=== PATIENT | male | born 1960 | race Caucasian/White ===

== ENCOUNTER 2019-01-20 15:52 | Emergency (ER) | payer BC, SELFPAY ==
[2019-01-20 15:55] VITALS: BP 161/99; PULSE 75; RESP 16; TEMP 36.5; O2SAT 99
--- NOTE | 2019-01-20 16:10 | W.ED.GENAD ---
Discharge Plan Disposition Patient Disposition: HOME Condition: Stable Discharge Details Chief Complaint: EarProblem Clinical Impression: Acute infection of left pinna Primary Care Provider: Joe Allred ED Provider: Jaime Auguste Home Meds and New Rx's Prescriptions: New ciprofloxacin HCl 750 mg tablet 750 mg PO BID Qty: 14 RF: 0 clindamycin HCl 150 mg capsule 450 mg PO Q6H 7 Days Qty: 84 RF: 0 No Action sildenafil [Viagra] 100 MG tablet 100 mg PO DAILY Qty: 3 RF: 12 Discharge Instructions Instructions: Cellulitis (ED) Additional Instructions: if you are not better within a week see your primary care provider return to the emegency department for severe worsening pain or high fevers Medical Decision Making 58 yo male comes in with complaint of left ear discomfort since yesterday. He has a mole that he has had chronically in the pinna of the left ear and has seen derm for it per pt. He also notes that a fly went into his ear canal about a week ago and he scratched his ear to get it out. Denies fevers or chills or swimming. HE has redness of the left pinna and no significant tenderness or discharge, normal external mastoid, temrporal bones and facial/orbital bones and normal tm. Does have mild swelling of very outer die cast supervisor canal without drainage. He does also ntoe that he tends to scratch and pick at his mole a lot. I suspect cellulitis vs auriculitis, no drainage necessary at this time. ADvised f/u with pcp if not better in a week and return precautions given Differential Diagnosis perichondritis, cellulitis, otitis externa HPI General Mode of arrival: ambulatory. Date/Time Provider Initiated Documentation: 01/20/19 16:05. Limitations to Documentation: no limitations. Information obtained by: patient. History of Present Illness 58 year old M presents to the emergency department with the chief complaint of left ear pain, described as moderate, Quality is described as burning and aching, and is localized to the head (left ear). Patient reports no radiation. Patient started experiencing this day(s) (1) and it has been constant. No relieving factors improve symptom(s), No exacerbating factors reported . Patient notes no other symptoms.. Patient did receive the following treatments prior to arrival, none Related Data Home Medications Medication Instructions Recorded Confirmed sildenafil [Viagra] 100 mg PO DAILY #3 tab-cap 12/26/16 01/20/19 ciprofloxacin HCl 750 mg PO BID #14 tab 01/20/19 clindamycin HCl 450 mg PO Q6H 7 Days #84 cap 01/20/19 Previous Rx's Medication Instructions Recorded ciprofloxacin HCl 750 mg PO BID #14 tab 01/20/19 clindamycin HCl 450 mg PO Q6H 7 Days #84 cap 01/20/19 Allergies Allergy/AdvReac Type Severity Reaction Status Date / Time No Known Allergies Allergy Verified 01/20/19 15:58 General Stated Complaint: EarProblem MILA: 4 Review of Systems Review of Systems All systems reviewed & are unremarkable except as noted in HPI and below Constitutional Denies chills and Denies fever(s) ENT Denies change in voice Cardiovascular Denies chest pain and Denies dyspnea Respiratory Denies cough and Denies dyspnea Gastrointestinal Denies abdominal pain, Denies nausea and Denies vomiting Musculoskeletal Denies joint swelling Psychiatric Denies depression [facility] Surgical History Skin Cancer Removal Vasectomy Family History Mother Essential hypertension Father Essential hypertension Hyperlipidemia Sister No problems noted. Brother No problems noted. Maternal Grandfather No problems noted. Paternal Grandfather Heart disease Maternal Grandmother No problems noted. Paternal Grandmother Heart disease Son No problems noted. Daughter No problems noted. Sister Leukemia Brother No problems noted. Social History Smoking/Tobacco Use Status: Never Second Hand Exposure: No Alcohol Intake: current Alcohol Intake frequency: 0-2 drinks per day Alcohol type: beer Drug use: Never Substance use type: does not use Caregiver/Support person: No Household members: spouse Housing: house Communication Needs: None Do you need help understanding health information?: Never Pets and animals: Yes Pets and animals: dog(s) Sexually active: Yes Do you think of yourself as: straight/heterosexual Current gender identity: male What is your relationship status?: How often do you talk on the phone with friends or family?: three or more times per week How often do you get together with friends or relatives?: once per week How often do you attend jehovah's witness or mormon services?: 4 or more times per year Do you belong to any clubs or organized social groups?: no Panel score (0-1 are the most socially isolated patients): 3 What type of physical activity do you participate in: weight lifting and other Details: circuit training Duration: 15-30 minutes/day Frequency: 3-4 times per week Rosa/Islam: Episcopalian Special rosa needs: No Seatbelt use: always Helmet use: Yes Drive intox or ride w/intox route driver coin machines: No Do you feel safe at home: Yes Do you feel safe in your relationship?: Yes Exam Const General: no acute distress Orientation: alert HENMT Head: normocephalic Ears: hearing grossly normal bilaterally Mouth: moist mucous membranes Eyes General: appearance normal, both eyes and all related structures Neck Neck: normal visual inspection Resp Effort & Inspection: normal respiratory effort and able to speak in complete sentences Cardio Rate: regular rate Skin General skin exam: no rashes or lesions noted Neuro General: alert and oriented x3 Extrem General: normal to inspection Psych Mental Status: mental status grossly normal Course Vital Signs Temperature 36.5 C 01/20/19 15:55 Pulse 75 01/20/19 15:55 Respiratory Rate 16 01/20/19 15:55 Blood Pressure 161/99 H 01/20/19 15:55 Pulse Oximetry 99 01/20/19 15:55 Temperature 36.5 C 01/20/19 15:55 Temperature Source Temporal Artery Scan 01/20/19 15:55 Pulse 75 01/20/19 15:55 Respiratory Rate 16 01/20/19 15:55 Respiratory Effort Non-Labored 01/20/19 15:58 Blood Pressure 161/99 H 01/20/19 15:55 Blood Pressure Position Sitting 01/20/19 15:55 Pulse Oximetry 99 01/20/19 15:55 Pain Level 5 01/20/19 15:59
--- NOTE | 2019-01-20 16:15 | ED.GENADUL_ITS ---
Discharge Plan Disposition Patient Disposition: HOME Condition: Stable Discharge Details Chief Complaint: EarProblem Clinical Impression: Acute infection of left pinna Primary Care Provider: Joe Allred ED Provider: Jaime Auguste Home Meds and New Rx's Prescriptions: New ciprofloxacin HCl 750 mg tablet 750 mg PO BID Qty: 14 RF: 0 clindamycin HCl 150 mg capsule 450 mg PO Q6H 7 Days Qty: 84 RF: 0 No Action sildenafil [Viagra] 100 MG tablet 100 mg PO DAILY Qty: 3 RF: 12 Discharge Instructions Instructions: Cellulitis (ED) Additional Instructions: if you are not better within a week see your primary care provider return to the emegency department for severe worsening pain or high fevers Medical Decision Making 58 yo male comes in with complaint of left ear discomfort since yesterday. He has a mole that he has had chronically in the pinna of the left ear and has seen derm for it per pt. He also notes that a fly went into his ear canal about a week ago and he scratched his ear to get it out. Denies fevers or chills or swimming. HE has redness of the left pinna and no significant tenderness or discharge, normal external mastoid, temrporal bones and facial/orbital bones and normal tm. Does have mild swelling of very outer internal auditor canal without drainage. He does also ntoe that he tends to scratch and pick at his mole a lot. I suspect cellulitis vs auriculitis, no drainage necessary at this time. ADvised f/u with pcp if not better in a week and return precautions given Differential Diagnosis perichondritis, cellulitis, otitis externa HPI General Mode of arrival: ambulatory . Date/Time Provider Initiated Documentation: 01/20/19 16:05 . Limitations to Documentation: no limitations . Information obtained by: patient . History of Present Illness 58 year old M presents to the emergency department with the chief complaint of left ear pain, described as moderate, Quality is described as burning and aching, and is localized to the head (left ear). Patient reports no radiation. Patient started experiencing this day(s) (1) and it has been constant. No relieving factors improve symptom(s), No exacerbating factors reported . Patient notes no other symptoms.. Patient did receive the following treatments prior to arrival, none Related Data Home Medications Medication Instructions Recorded Confirmed sildenafil [Viagra] 100 mg PO DAILY #3 tab-cap 12/26/16 01/20/19 ciprofloxacin HCl 750 mg PO BID #14 tab 01/20/19 clindamycin HCl 450 mg PO Q6H 7 Days #84 cap 01/20/19 Previous Rx's Medication Instructions Recorded ciprofloxacin HCl 750 mg PO BID #14 tab 01/20/19 clindamycin HCl 450 mg PO Q6H 7 Days #84 cap 01/20/19 Allergies Allergy/AdvReac Type Severity Reaction Status Date / Time No Known Allergies Allergy Verified 01/20/19 15:58 General Stated Complaint: EarProblem MILA: 4 Review of Systems Review of Systems All systems reviewed & are unremarkable except as noted in HPI and below Constitutional Denies chills and Denies fever(s) ENT Denies change in voice Cardiovascular Denies chest pain and Denies dyspnea Respiratory Denies cough and Denies dyspnea Gastrointestinal Denies abdominal pain, Denies nausea and Denies vomiting Musculoskeletal Denies joint swelling Psychiatric Denies depression [facility] Surgical History Skin Cancer Removal Vasectomy Family History Mother Essential hypertension Father Essential hypertension Hyperlipidemia Sister No problems noted. Brother No problems noted. Maternal Grandfather No problems noted. Paternal Grandfather Heart disease Maternal Grandmother No problems noted. Paternal Grandmother Heart disease Son No problems noted. Daughter No problems noted. Sister Leukemia Brother No problems noted. Social History Smoking/Tobacco Use Status: Never Second Hand Exposure: No Alcohol Intake: current Alcohol Intake frequency: 0-2 drinks per day Alcohol t ype: beer Drug use: Never Substance use type: does not use Caregiver/Support person: No Household members: spouse Housing: house Communication Needs: None Do you need help understanding health information?: Never Pets and animals: Yes Pets and animals: dog(s) Sexually active: Yes Do you think of yourself as: straight/heterosexual Current gender identity: male What is your relationship status?: How often do you talk on the phone with friends or family?: three or more times per week How often do you get together with friends or relatives?: once per week How often do you attend roman catholic or adventism services?: 4 or more times per year Do you belong to any clubs or organized social groups?: no Panel score (0-1 are the most socially isolated patients): 3 What type of physical activity do you participate in: weight lifting and other Details: circuit training Duration: 15-30 minutes/day Frequency: 3-4 times per week Rosa/Denominational: Mormon Special rosa needs: No Seatbelt use: always Helmet use: Yes Drive intox or ride w/intox local tanker truck driver: No Do you feel safe at home: Yes Do you feel safe in your relationship?: Yes Exam Const General: no acute distress Orientation: alert HENMT Head: normocephalic Ears: hearing grossly normal bilaterally Mouth: moist mucous membranes Eyes General: appearance normal, both eyes and all related structures Neck Neck: normal visual inspection Resp Effort & Inspection: normal respiratory effort and able to speak in complete sentences Cardio Rate: regular rate Skin General skin exam: no rashes or lesions noted Neuro General: alert and oriented x3 Extrem General: normal to inspection Psych Mental Status: mental status grossly normal Course Vital Signs Temperature 36.5 C 01/20/19 15:55 Pulse 75 01/20/19 15:55 Respiratory Rate 16 01/20/19 15:55 Blood Pressure 161/99 H 01/20/19 15:55 Pulse Oximetry 99 01/20/19 15:55 Temperature 36.5 C 01/20/19 15:55 Temperature Source Temporal Artery Scan 01/20/19 15:55 Pulse 75 01/20/19 15:55 Respiratory Rate 16 01/20/19 15:55 Respiratory Effort Non-Labored 01/20/19 15:58 Blood Pressure 161/99 H 01/20/19 15:55 Blood Pressure Position Sitting 01/20/19 15:55 Pulse Oximetry 99 01/20/19 15:55 Pain Level 5 01/20/19 15:59
== END 2019-01-20 16:27 | disposition home or self-care (01) ==
PROVIDERS: Emergency Provider Emergency Medicine; PCP Emergency Medicine
DX: H61.102 Unspecified noninfective disorders of pinna, left ear (principal)
CPT/HCPCS: 99283

== ENCOUNTER 2020-09-07 15:37 | Outpatient (REF) | payer BC, SELFPAY ==
--- NOTE | 2020-09-07 14:45 | SKI_PTH ---
PATIENT: Ryder Metzger LOC: [facility] U#:[id number] AGE/SX: 59/M ROOM: RE09/07/[address]: Joe Allred DO : 1960 BED: DIS: 09/07/2020 SPEC #: [id number] RECD: 09/08/20 12:47 STATUS: LIA REQ #: [id number] SAHIL: 09/07/20 14:[address]: Joe Allred DEPT: Surgical Specimen RECD BY: Elsa Pinedo Tissues: 1 - SKIN BIOPSY(SHAVE/PUNCH) Procedures: IMMUNOPEROXIDASE STAIN SKIN LEVEL 4 Comments: [id number]
== END 2020-09-07 15:57 ==
LOC: LBN 15:37
PROVIDERS: PCP Emergency Medicine; Visit Provider Emergency Medicine
DX: D22.5 Melanocytic nevi of trunk (principal)
CPT/HCPCS: 88305; 88361

== ENCOUNTER 2020-09-23 15:57 | Outpatient (REF) | payer BC, SELFPAY ==
--- NOTE | 2020-09-23 13:50 | SKI_PTH ---
PATIENT: Ryder Metzger LOC: [facility] U#:[id number] AGE/SX: 60/M ROOM: RE09/23/[address]: MELISSA Turner : 1960 BED: DIS: 09/23/2020 SPEC #: [id number] RECD: 09/23/20 17:02 STATUS: LIA REQ #: [id number] SAHIL: 09/23/20 13:[address]: Ledy Huggins DEPT: Surgical Specimen RECD BY: Elsa Pinedo ENTERED: 09/23/20 17:03 SP TYPE: XIOMY PARDO DR: Joe Allred DO Tissues: 1 - SKIN BIOPSY(SHAVE/PUNCH) Procedures: IMMUNOPEROXIDASE STAIN SKIN LEVEL 4 Comments: [id number]
== END 2020-09-23 16:17 ==
LOC: LBN 15:57
PROVIDERS: PCP Emergency Medicine; Visit Provider Physical Therapy Assistant
DX: D22.5 Melanocytic nevi of trunk (principal)
CPT/HCPCS: 88305; 88361

== ENCOUNTER 2020-09-30 02:12 | Outpatient (CLI) | payer BC, SELFPAY ==
[2020-10-01 14:49] LABS: COVID-19 RT-PCR UVMMC Result Negative (Negative)
== END 2020-09-30 02:32 ==
PROVIDERS: PCP Emergency Medicine; Visit Provider Surgery
DX: Z11.59 Encounter for screening for other viral diseases (principal); Z01.818 Encounter for other preprocedural examination
CPT/HCPCS: U0003

== ENCOUNTER 2020-09-30 09:23 | Outpatient (REF) | payer BC, SELFPAY ==
--- NOTE | 2020-09-30 08:30 | SKI_PTH ---
PATIENT: Ryder Metzger LOC: [facility] U#:[id number] AGE/SX: 60/M ROOM: RE09/30/[address]: MELISSA Turner : 1960 BED: DIS: 09/30/2020 SPEC #: [id number] RECD: 09/30/20 12:50 STATUS: LIA REQ #: [id number] SAHIL: 09/30/20 08:[address]: Ledy Huggins DEPT: Surgical Specimen RECD BY: Elsa Pinedo ENTERED: 09/30/20 12:51 SP TYPE: XIOMY PARDO DR: Joe Allred DO Tissues: 1 - SKIN BIOPSY(SHAVE/PUNCH) Procedures: SKIN LEVEL 4 Comments: [id number]
== END 2020-09-30 09:43 ==
LOC: LBN 09:23
PROVIDERS: PCP Emergency Medicine; Visit Provider Physical Therapy Assistant
DX: L92.8 Other granulomatous disorders of the skin and subcutaneous tissue (principal); L98.428 Non-pressure chronic ulcer of back with other specified severity
CPT/HCPCS: 88305

== ENCOUNTER 2020-10-04 11:08 | Day surgery (SDC) | payer BC, SELFPAY ==
--- NOTE | 2020-10-04 07:12 | W.COLOREPORT ---
Date of service: 10/04/20 Time of Service: 12:30 Colonoscopy Report Date of procedure: 10/04/20 Pre-op diagnosis general: Colon Cancer Screening Post-op diagnosis procedure note: other (polyp) Procedure: Colonoscopy with polypectomy Surgeon: Sara Patricio Anesthesia proc note operative: other (General/ASA 2/Fernandez Flores CRNA) Estimated blood loss (mL): 3 Pathology: other (>2 cm polyp at 18-20 cm) Complications: None Disposition: same day Indications: The patient is here for Colonoscopy pre-op. His last screening was in 2008 and was unremarkable. He has no family history of colon cancer. He has not had any bowel habit changes. -Discussed colonoscopy bowel prep as well as the procedure. Discussed possible complications of the procedure to include bleeding, pain, perforation, missed small lesion/polyp, sore throat, aspiration and adverse reaction to the medications. Questions were answered to patient?s satisfaction. No guarantees were implied or given Prep: Miralax/Dulcolax Procedure Start Time: 12:05 Procedure End Time: 12:35 Retraction Time: 20 minutes Findings: One large approximately 2 cm polyp at 18-20 cm Procedure Description: After informed consent was obtained the patient was taken to the procedure room and placed in a left decubitous position. Monitors were applied and a time out was done. The patients name, date of , procedure, allergies to medications and metal in their body was reviewed. The patient was then sedated. Once sedated and comfortable a rectal exam was done. External exam was normal. Internal exam revealed a normal sphincter tone and no palpable masses. The prostate felt smooth. The scope was then introduced and retro-flexed. No internal hemorrhoids were identified. The scope was then advanced to the cecum without difficulty. The ileocecal valve and appendiceal orifice were identified. The prep was good. The scope was then slowly retracted over 20 minutes back into the rectum. One pedunculated polyp, approximately 2 cm in size, was removed with a hot snare. The scope was removed and the patient was woken up and taken back to Same day surgery in stable condition. The patient tolerated the procedure well and there were no immediate complications. Follow up: Follow up will depend on final pathology
--- NOTE | 2020-10-04 07:13 | W.PM.DSUDISC ---
Discharge Plan Disposition Patient Disposition: HOME Condition: Good Discharge Details Reason For Visit: Colon Cancer Screening Attending Provider: Sara Patricio Primary Care Provider: Joe Allred Home Meds and New Rx's Prescriptions: Continued sildenafil [Viagra] 100 MG tablet 100 mg PO DAILY Qty: 3 RF: 12 Discontinued polyethylene glycol 3350 17 gram/dose powder 238 g PO ONCE Qty: 238 RF: 0 bisacodyl [Dulcolax (bisacodyl)] 5 mg tablet,delayed release (DR/EC) 5 mg PO ONCE Qty: 4 RF: 0 Discharge Instructions Instructions: Colorectal Polyps (DC) Additional Instructions: Findings: Large pedunculated polyp Follow up: Will depend on final pathology Please call if you develop: fevers >101.5 Nausea or Vomiting Abdominal pain that is not transient DAY SURGERY UNIT POST ENDOSCOPY INSTRUCTIONS 1. Because there will be medication in your system for the next 24 hours, you may feel a little sleepy. Your coordination will be affected. Therefore: a. Do not drive or operate dangerous equipment for 24 hours. b. Do not drink alcohol beverages for 24 hours (not even beer). c. Plan to go home and rest for the day. 2. Generally there are no restrictions on your activity after a day or so has gone by, but you may feel a bit fatigued for a few days. 3 After you arrive home you may have a light meal and return to a normal diet as you can tolerate it without feeling sick to your stomach. 4. After surgery, you may feel pain or discomfort. This should be only transient, but if it persists please contact your doctor. 5. If there are any questions regarding the findings of your procedure, please feel free to contact your doctor. 6. If you are unable to contact your doctor with a problem, contact the hospital at [phone]. 7. Continue all your regular medications unless directed otherwise. I understand the above instructions and have no questions. Signature of Patient or Responsible Adult Escort Date/Time Name of Responsible Adult Escort Signature of Nurse Date/Time Activity:: Activity as Tolerated Diet:: As Tolerated Discharge Orders Discharge Orders: Discharge Order (Routine); Ordered 10/04/20 Ordered By: Sara Patricio
[2020-10-04 11:15] VITALS: BP 146/98; PULSE 61; RESP 18; TEMP 36.6; O2SAT 100
[2020-10-04] MEDS: Lactated Ringers 1,000 ML 80 ML IV (11:37)
--- NOTE | 2020-10-04 12:28 | BOWEL_PTH ---
PATIENT: Ryder Metzger LOC: [facility] U#:[id number] AGE/SX: 60/M ROOM: RE10/04/[address]: Sara Patricio MD : 1960 BED: DIS: 10/04/2020 SPEC #: [id number] RECD: 10/04/20 16:17 STATUS: LIA REQ #: [id number] SAHIL: 10/04/20 12:[address]: Sara Patricio DEPT: Surgical Specimen RECD BY: Esla Pinedo ENTERED: 10/04/20 16:17 SP TYPE: Bowel OTHR DR: Joe Allred DO Tissues: 1 - BIOPSY BOWEL Procedures: GROSS AND MICRO LEVEL 4 Comments: [id number]
[2020-10-04 13:05] VITALS: BP 116/81; PULSE 64; RESP 18; TEMP 36; O2SAT 100
== END 2020-10-04 13:15 | disposition home or self-care (01) ==
LOC: SUR 11:09
PROVIDERS: PCP Emergency Medicine; Visit Provider Surgery
PROC: 0DJD8ZZ Inspection of Lower Intestinal Tract, Via Natural or Artificial Opening Endoscopic (ICD-10-PCS; CPT 45378; principal; 2020-10-04 12:30)
DX: Z12.11 Encounter for screening for malignant neoplasm of colon (principal); D12.6 Benign neoplasm of colon, unspecified
CPT/HCPCS: 45385; 88305

== ENCOUNTER 2021-11-11 04:23 | Outpatient (CLI) | payer BC, SELFPAY ==
[2021-11-11 09:31] LABS: Anion Gap 9.5 mmol/L (3-11); BUN 19 mg/dL (7-18); CO2 27.5 mmol/L (21.0-32.0); CREATININE 1.4 mg/dL (0.70-1.30); Calcium 8.9 mg/dL (8.5-10.1); Calculated LDL 116 mg/dL (<100); Chloride 103 mmol/L (98-107); Cholesterol 221 mg/dL (<200); Estimated GFR 51.69 (mL/min/1.73m2); Glucose 91 mg/dL (74-106); HDL Cholesterol 100 mg/dL (40-60); Potassium 4.1 mmol/L (3.5-5.1); Sodium 140 mmol/L (136-145); Triglyceride 29 mg/dL (<150)
[2021-11-11 18:55] LABS: PSA, Screening 1.6 ng/mL (0.0-4.5)
== END 2021-11-11 04:24 | disposition home or self-care (01) ==
LOC: LBO 04:23
PROVIDERS: PCP Family Medicine; Visit Provider Emergency Medicine
DX: I10 Essential (primary) hypertension (principal); Z12.5 Encounter for screening for malignant neoplasm of prostate
CPT/HCPCS: 36415; 80048; 80061; 84153

== ENCOUNTER 2022-03-21 02:04 | Outpatient (CLI) | payer BC, SELFPAY ==
[2022-03-21 13:07] LABS: Anion Gap 9.8 mmol/L (3-11); BUN 18 mg/dL (7-18); CO2 28.2 mmol/L (21.0-32.0); CREATININE 1.2 mg/dL (0.70-1.30); Calcium 8.9 mg/dL (8.5-10.1); Chloride 101 mmol/L (98-107); Glucose 91 mg/dL (74-106); Potassium 4.1 mmol/L (3.5-5.1); Sodium 139 mmol/L (136-145)
== END 2022-03-21 02:05 | disposition home or self-care (01) ==
LOC: LOS 02:04
PROVIDERS: PCP Family Medicine; Visit Provider Emergency Medicine
DX: I10 Essential (primary) hypertension (principal)
CPT/HCPCS: 36415; 80048

== ENCOUNTER 2022-11-24 01:33 | Outpatient (CLI) | payer BC, SELFPAY ==
[2022-11-24 12:44] LABS: Anion Gap 8.2 mmol/L (3-11); BUN 14 mg/dL (7-18); CO2 28.8 mmol/L (21.0-32.0); CREATININE 1.3 mg/dL (0.70-1.30); Calcium 9.2 mg/dL (8.5-10.1); Calculated LDL 134 mg/dL (<100); Chloride 103 mmol/L (98-107); Cholesterol 241 mg/dL (<200); Glucose 108 mg/dL (74-106); HDL Cholesterol 97 mg/dL (40-60); Potassium 4.1 mmol/L (3.5-5.1); Sodium 140 mmol/L (136-145); Triglyceride 54 mg/dL (<150)
[2022-11-24 12:54] LABS: Hemoglobin A1C 5.4 % (<5.7)
== END 2022-11-24 01:34 | disposition home or self-care (01) ==
LOC: LOS 01:33
PROVIDERS: PCP Nurse Practitioner Family; Visit Provider Nurse Practitioner Family
DX: E78.5 Hyperlipidemia, unspecified (principal); I10 Essential (primary) hypertension
CPT/HCPCS: 36415; 80048; 80061; 83036

== ENCOUNTER 2023-05-25 02:43 | Outpatient (CLI) | payer BC, SELFPAY ==
[2023-05-25 13:09] LABS: Calculated LDL 73 mg/dL (<100); Cholesterol 158 mg/dL (<200); HDL Cholesterol 78 mg/dL (40-60); Triglyceride 37 mg/dL (<150)
== END 2023-05-25 02:44 | disposition home or self-care (01) ==
LOC: LOS 02:43
PROVIDERS: PCP Nurse Practitioner Family; Visit Provider Nurse Practitioner Family
DX: E78.5 Hyperlipidemia, unspecified (principal)
CPT/HCPCS: 36415; 80061

== ENCOUNTER 2023-07-20 08:13 | Day surgery (SDC) | payer BC, SELFPAY ==
--- NOTE | 2023-07-19 11:11 | PDOC.DSDIS_ITS ---
Date of service: 07/20/23 Time of Service: 09:44 Discharge Plan Disposition Patient Disposition: Home Condition: Good Discharge Details Reason For Visit: Colon scope Attending Provider: Tami Troy Primary Care Provider: Saima Parker Home Meds and New Rx's Prescriptions: Continued sildenafil [Viagra] 100 mg tablet 50 - 100 mg PO DAILY PRN (Reason: sexual activity) Qty: 60 2RF Rx Instructions: Half to 1 tablet about an one hour prior to sexual activity amlodipine 10 mg tablet 10 mg PO DAILY Qty: 90 3RF rosuvastatin 10 mg tablet 10 mg PO DAILY Qty: 90 3RF Discontinued bisacodyl [Dulcolax (bisacodyl)] 5 mg tablet,delayed release (DR/EC) 5 mg PO ONCE Qty: 4 0RF Rx Instructions: Colonoscopy Bowel Prep- Per Instructions polyethylene glycol 3350 17 gram/dose powder 238 g PO ONCE Qty: 238 0RF Rx Instructions: Colonoscopy Bowel Prep- Per Instructions Discharge Instructions Additional Instructions: DSU Colonoscopy Post- Op Instructions Instructions for Everyone who is given Anesthesia: For your safety, please do the following for the next twenty-four (24) hours: *Do Not operate a motor vehicle (car, truck, motorcycle, etc.) *Do Not drink alcoholic beverages or use any recreational drugs for the first 24 hours or while taking pain medications. The medications in your body may have a reaction that can be dangerous. *Do Not make any important decisions or sign any important papers. Findings: Small polyp Minor diverticula-make sure you are moving your bowels on a regular basis and you are not straining to go to the bathroom. If you find that you have issues with constipation or straining, then we recommend you start a fiber supplement such as Metamucil daily. Follow up: My office will send a letter in 2 to 3 weeks time with the results of the pathology and when we want you to repeat the colonoscopy, most likely 5 years time. 1. No lifting over 20 pounds or strenuous activity for the first 24 hours after your procedure. After 24 hours there are no restrictions on your activity but you may feel fatigued for a few days. 2. After you arrive home you may have a light meal and return to your normal diet as you can tolerate it without feeling sick to your stomach. 3. You may have a bloated, gaseous feeling in your belly (abdomen) after a colonoscopy. Passing gas and belching will help. Walking or lying down on your left side with your knees flexed may relieve the discomfort. Call the office at [phone] (Office) or [phone] (Hospital) right away if you notice any of the following: a.Vomiting of blood or ?coffee ground stools?. b.Rectal bleeding 1Tbsp, blood clots or continuous bleeding. c.Severe belly (abdominal) pain. d.A hard distended belly (abdomen) and an inability to pass gas. 4. Please don?t expect to have a normal BM (bowel movement) for 2-3 days after your procedure. 5. If there are questions regarding the findings of your procedure, please contact your doctor 6. If you are unable to contact your doctor with a problem, contact the hospital at [phone]. 7. Continue all your regular medications unless directed otherwise. I understand the above instructions and have no questions. 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 The patient has been able to pass gas.? They are not having abdominal pain.? They have been able to tolerate liquids and a snack.? They do not have any nausea or vomiting.? They are not having any chest pain or shortness of breath.??? They are not having any rectal bleeding. Their vital signs have been stable-see nursing notes. We discussed findings during their colonoscopy, and any biopsies that were done /polyps that were removed. The patient will be sent a letter with any biopsy results, and when to repeat the colonoscopy.-see discharge instructions. Patient was given explicit instructions to follow-up regarding colonoscopy-refer to discharge instructions.? We reviewed resumption of medications. Patient verbalized understanding and discharged in stable and satisfactory condition- See nursing notes. (4) Diverticula of colon: Status: Acute
--- NOTE | 2023-07-19 11:11 | W.COLOREPORT ---
Date of service: 07/20/23 Time of Service: 09:46 Colonoscopy Report Date of procedure: 07/20/23 Pre-op diagnosis general: Villous adenoma of the rectum Post-op diagnosis procedure note: other (Small adenomatous polyp/diverticula) Surgeon: Tami Troy Anesthesia Type: General:No Airway Estimated blood loss (mL): 1 Pathology: other Complications: None Disposition: same day Prep: Miralax/Dulcolax Retraction Time: 11 Procedure Description: After informed consent was obtained the patient was taken to the procedure room and placed in a left decubitous position. Monitors were applied and a time out was done. The patients name, date of , procedure, allergies to medications and metal in their body was reviewed. The patient was then sedated. Once sedated and comfortable a rectal exam was done. External exam was normal. Internal exam revealed a normal sphincter tone and no palpable masses. The prostate normal. The scope was then introduced and retrofelexed. Grade 2x1 column internal hemorrhoids were identified. The scope was then advanced to the cecum without difficulty. The TI and appendiceal orifice were identified. The prep was BBPS 3 in all segments for total of 9. The scope was then slowly retracted over 11 minutes back into the rectum. he had a 5 mm flat polyp at 90 cm that is removed with a cold biting forcep. The specimen was retrieved and no bleeding was noted. He has small scattered, few in number, diverticula in the sigmoid colon, with no signs of active bleeding or infection. The colonic Mucosa was otherwise pink and healthy with a normal vascular pattern. the scope was removed and the patient was woken up and taken back to Same day surgery in stable condition. The patient tolerated the procedure well and there were no immediate complications. Follow up: The patient should follow up in ~5 years unless they develop changes in bowel habits or other new gastrointestinal complaints.
--- NOTE | 2023-07-20 06:21 | ANES.PREOP_ITS ---
General Info Date of Service Date Performed: 07/20/23 Height: 6 ft Weight: 86.183 kg Body Mass Index (BMI): 25.7 Surgical Procedure: Operation Date: 07/20/23 09:05 Proposed Procedure Side Surgeon jared Troy, Meds Allergies and Home Medications Allergies Allergy/AdvReac Type Severity Reaction Status Date / Time No Known Allergies Allergy Verified 07/19/23 12:31 Home Medication Medication Instructions Recorded sildenafil 100 mg tablet (Viagra) 50 - 100 mg PO DAILY PRN sexual 09/22/22 activity #60 tab-caps amlodipine 10 mg tablet 10 mg PO DAILY #90 tabs 10/18/22 rosuvastatin 10 mg tablet 10 mg PO DAILY #90 tabs 11/24/22 Current Visit Medications: Current Medications Generic Name Dose Route Start Last Admin Trade Name Freq PRN Reason Stop Dose Admin Hyoscyamine Sulfate 0.125 mg 07/20/23 09:26 Hyoscyamine 0.125 Mg Sl/Oral/Chew SL 08/19/23 09:25 DIRECTED PRN Ringer's Solution 1,000 mls @ 80 mls/hr 07/20/23 06:00 IV 08/18/23 23:59 INFUSION REPLACED BY [facility] IV Miscellaneous Supplies 1 each 07/20/23 06:00 Iv Access IV 08/18/23 23:59 DIRECTED REPLACED BY [facility] Ondansetron HCl 4 mg 07/20/23 09:26 Ondansetron 4 Mg/2 Ml Vial IVP 08/19/23 09:25 Q4H PRN PRN Nausea / Vomiting Sodium Chloride 0 ml 07/20/23 06:00 Normal Saline Flush 10 Ml Syr IV 08/18/23 23:59 PRN PRN Sodium Chloride 0 ml 07/20/23 06:00 Normal Saline 10 Ml Vial IJ 08/18/23 23:59 DIRECTED PRN Sterile Water 0 ml 07/20/23 06:00 Water,Injection,Sterile 10 Ml Vial IJ 08/18/23 23:59 DIRECTED PRN PFSH Active Problems Active Problems: Problem Status Onset Code Essential hypertension I10 Hyperlipidemia E78.5 Hemorrhoids K64.9 Deviated nasal septum J34.2 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 Erectile dysfunction N52.9 Medical History Medical History Calculus of kidney Malignant melanoma of upper back (~2015) SCCA (squamous cell carcinoma) of skin left upper back 01/02 and right forehead 11/05 Surgical History Surgical History History of colonoscopy Status post vasectomy Tobacco Smoking/Tobacco Use Status: Never Passive smoking exposure: Yes Second hand exposure: Yes Alcohol Alcohol Intake: current Alcohol intake frequency: a few times a week Alcohol type: beer Substance Use Substance use: Never Substance use type: does not use Vital Signs and Lab Results Lab Results Blood Type / Crossmatch: No Data to Display Complete Blood Count: No Data to Display Complete Metabolic Panel: No Data to Display Liver Function Panel: No Data to Display Coagulation Panel: No Data to Display Cardiac Panel: No Data to Display Arterial Blood Gas: No Data to Display Venous Blood Gas: No Data to Display Pancreas Panel: No Data to Display Thyroid Panel: No Data to Display Infectious Disease: No Data to Display Blood Cultures: No Data to Display Toxicology Panel: No Data to Display Anesthesia Assessment and Plan Anesthesia History Personal History: No History of Anesthesia Complications Family History: No Family History of Anesthesia Complications Exercise Tolerance Exercise Tolerance: Metabolic Equivalents>4 Cardiac & Pulmonary Exam Cardiac Exam: Normal S1/S2 Heart Sounds Pulmonary Exam: Clear Bilateral Breath Sounds Implantable Cardiac Device Does patient have a Pacemaker or an ICD?: No Airway Exam Known Difficult Airway: No Mallampati Class: 4 Mouth Opening: Narrow (< 3cm) Thyromental Distance: Less than 3 cm Neck Range of Motion: Full ROM Neck Circumference: Normal Teeth Condition: Normal Dentition ASA Classification ASA Score: ASA 2 Emergency Case?: No NPO Status NPO Status: NPO Clears >2 hours, Solids >8 hours Anesthesia Plan Resuscitation Status: Full Code Anesthesia Technique: General Anesthesia Airway Planned: Natural Airway Monitors Used: Standard Monitors Preoperative Comments:: 62 yo male for colo. Sig PMHx: HTN (amlodipine), never smoker, occ EtOH. Previous Anes: - colo, prop, natural airway, no issues.
[2023-07-20 08:15] VITALS: BP 132/96; PULSE 72; RESP 18; TEMP 36.6; O2SAT 99
[2023-07-20 08:42] VITALS: BMI 25.7
[2023-07-20] MEDS: Lactated Ringers 1,000 ML 80 ML IV (08:45)
--- NOTE | 2023-07-20 09:17 | BOWEL_PTH ---
PATIENT: Ryder Metzger LOC: [facility] U#:[id number] AGE/SX: 62/M ROOM: RE07/20/[address]: Tami Troy : 1960 BED: DIS: 07/20/2023 SPEC #: [id number] RECD: 07/20/23 11:18 STATUS: LIA REQ #: [id number] SAHIL: 07/20/23 09:[address]: Tami Troy DEPT: Surgical Specimen RECD BY: Elsa Pinedo ENTERED: 07/20/23 11:18 SP TYPE: Bowel OTHR DR: FRANCISCO Kiser Tissues: 1 - BIOPSY BOWEL Procedures: GROSS AND MICRO LEVEL 4 Comments: [id number]
[2023-07-20 09:29] VITALS: BP 106/73; PULSE 70; RESP 16; TEMP 36; O2SAT 97
--- NOTE | 2023-07-20 09:50 | W.ANESPOSTOP ---
Postoperative Evaluation Date, Time and Location Date Performed: 07/20/23 Time Performed: 09:50 Patient Location: Day Surgery Unit Vital Signs Most Recent Imported Vital Signs: Most Recent Vital Signs Temp Pulse Resp BP Pulse Ox 36 C L 70 16 106/73 97 07/20/23 09:29 07/20/23 09:29 07/20/23 09:29 07/20/23 09:29 07/20/23 09:29 Pain Score Most Recent Pain Score: Most Recent Pain Score Pain Level 0 07/20/23 09:29 Assessment Mental Status: Awake (Alert & Oriented to Patient Baseline) Airway and Respiratory Function: Patent airway with normal (patient baseline) respiratory exam Cardiovascular Function: Hemodynamically Stable Hydration Status: Adequately Hydrated Nausea & Vomiting: No Nausea or Vomiting Pain: Pt. Denies Any Pain Peripheral Nerve Block: Patient did not receive a nerve block
[2023-07-20 09:55] VITALS: BP 121/97; PULSE 56; RESP 18; TEMP 36.2; O2SAT 100
== END 2023-07-20 10:16 | disposition home or self-care (01) ==
PROVIDERS: PCP Nurse Practitioner Family; Visit Provider Surgery
PROC: 0DJD8ZZ Inspection of Lower Intestinal Tract, Via Natural or Artificial Opening Endoscopic (ICD-10-PCS; CPT 45378; principal; 2023-07-20 09:00)
DX: Z12.11 Encounter for screening for malignant neoplasm of colon (principal); Z86.010 Personal history of colon polyps; D12.3 Benign neoplasm of transverse colon; K57.30 Diverticulosis of large intestine without perforation or abscess without bleeding; I10 Essential (primary) hypertension; E78.5 Hyperlipidemia, unspecified
CPT/HCPCS: 45380; 88305; J2001

== ENCOUNTER 2023-11-15 04:50 | Outpatient (CLI) | payer BC, SELFPAY ==
[2023-11-15 15:54] LABS: TSH (W/Ref FT4) 2.07 uIU/mL (0.36-3.74)
[2023-11-16 11:10] LABS: Lab Add On Test DONE
[2023-11-16 11:17] LABS: Anion Gap 6.7 mmol/L (3-11); BUN 12 mg/dL (7-18); CO2 29.3 mmol/L (21.0-32.0); CREATININE 1.4 mg/dL (0.70-1.30); Chloride 104 mmol/L (98-107); Estimated GFR 56.83 (mL/min/1.73m2); Glucose 97 mg/dL (74-106); Sodium 140 mmol/L (136-145)
== END 2023-11-15 04:51 | disposition home or self-care (01) ==
LOC: LBO 04:51
PROVIDERS: PCP Nurse Practitioner Family; Visit Provider Nurse Practitioner Family
DX: Z00.00 Encounter for general adult medical examination without abnormal findings (principal)
CPT/HCPCS: 36415; 80048; 84443

== ENCOUNTER 2024-09-17 02:34 | Outpatient (CLI) | payer BC, SELFPAY ==
[2024-09-17 16:05] LABS: HCT 44.8 % (40.0-50.0); HGB 14.8 g/dL (13.5-17.5); MCH 29.1 pg (27.0-33.0); MCV 88 fL (80-95); MPV 10.8 fL (8.0-11.0); Platelet Count 264 10^3/uL (130-400); RBC 5.08 10^6/uL (4.36-5.78); RDW 12.3 % (11.8-14.1); RDW-SD 39.9 fL
[2024-09-17 17:42] LABS: ALT 37 U/L (16-63); AST 25 U/L (15-37); Albumin 4.2 g/dL (3.4-5.0); Alkaline Phosphatase 99 U/L (46-116); Anion Gap 10.4 mmol/L (3-11); BUN 17 mg/dL (7-18); Bilirubin, Total 1.48 mg/dL (0.2-1.0); CO2 28.6 mmol/L (21.0-32.0); CREATININE 1.7 mg/dL (0.70-1.30); Calcium 8.7 mg/dL (8.5-10.1); Chloride 104 mmol/L (98-107); Estimated GFR 45.02 (mL/min/1.73m2); Glucose 86 mg/dL (74-106); Potassium 4.1 mmol/L (3.5-5.1); Sodium 143 mmol/L (136-145); Total Protein 7.1 g/dL (6.4-8.2)
[2024-09-18 19:27] LABS: PSA, Screening 2.3 ng/mL (<=4.5)
[2024-09-18 20:04] LABS: HIV-1/2 Ag & Ab Screen Negative (Negative)
[2024-09-18 20:10] LABS: Hepatitis C Ab w Rflx HCV PCR Negative (Negative)
[2024-09-18 20:15] LABS: HBs Antibody, Quant <3.1 mIU/mL (See Note); Hep B Surface Ab Negative (See Note); Hepatitis B Core Antibody Negative (Negative); Hepatitis B Surface Antigen Negative (Negative)
== END 2024-09-17 02:35 | disposition home or self-care (01) ==
PROVIDERS: PCP Nurse Practitioner Family; Visit Provider Nurse Practitioner Family
DX: I10 Essential (primary) hypertension (principal); Z00.00 Encounter for general adult medical examination without abnormal findings; Z11.59 Encounter for screening for other viral diseases; Z12.5 Encounter for screening for malignant neoplasm of prostate; Z11.4 Encounter for screening for human immunodeficiency virus [HIV]
CPT/HCPCS: 36415; 80053; 84153; 85027; 86704; 86706; 86803; 87340; 87389

== ENCOUNTER 2024-10-01 10:01 | Outpatient (REF) | payer BC, SELFPAY ==
[2024-10-01 12:16] LABS: Bilirubin Negative (Negative); Blood Negative (Negative); Clarity Clear (Clear); Glucose Negative (Negative); Ketones Negative (Negative); Leukocyte Esterase Negative (Negative); Nitrite Negative (Negative); Specific Gravity 1.015 (1.005-1.025); Urobilinogen 0.2 mg/dL (Up to 0.2); pH 7.5 (5-8)
[2024-10-01 12:39] LABS: COMMENT (LAB VIEW ONLY) 66.97 mg/dL; PROTEIN 7.6 mg/dL; Prot/Crea Ur Ratio 0.11
[2024-10-01 12:41] LABS: COMMENT (LAB VIEW ONLY) 66.56 mg/dL; Microalb ug/mg Crea 3.3 ug/mg Cr
== END 2024-10-01 10:02 | disposition home or self-care (01) ==
LOC: LBN 10:01
PROVIDERS: PCP Nurse Practitioner Family; Visit Provider Nurse Practitioner Family
DX: I10 Essential (primary) hypertension (principal); N18.30 Chronic kidney disease, stage 3 unspecified
CPT/HCPCS: 81003; 82043; 82565; 82570; 84156

== ENCOUNTER 2024-11-14 00:40 | Outpatient (CLI) | payer BC, SELFPAY ==
[2024-11-14 07:56] LABS: ALT 46 U/L (16-63); AST 24 U/L (15-37); Albumin 3.9 g/dL (3.4-5.0); Alkaline Phosphatase 98 U/L (46-116); Anion Gap 5.1 mmol/L (3-11); BUN 12 mg/dL (7-18); Bilirubin, Total 1.92 mg/dL (0.2-1.0); CO2 31.9 mmol/L (21.0-32.0); CREATININE 1.4 mg/dL (0.70-1.30); Chloride 106 mmol/L (98-107); Estimated GFR 56.48 (mL/min/1.73m2); Ferritin 343 ng/mL (26-388); Glucose 103 mg/dL (74-106); Potassium 4.1 mmol/L (3.5-5.1); Sodium 143 mmol/L (136-145); Total Protein 6.8 g/dL (6.4-8.2)
== END 2024-11-14 00:41 | disposition home or self-care (01) ==
PROVIDERS: PCP Nurse Practitioner Family; Referring Provider Nurse Practitioner Family; Visit Provider Nurse Practitioner Family
DX: R93.2 Abnormal findings on diagnostic imaging of liver and biliary tract (principal); I10 Essential (primary) hypertension
CPT/HCPCS: 36415; 80053; 82728